=== PATIENT | female | born 1990 | race Caucasian/White ===

== ENCOUNTER → 2019-10-27 | Outpatient (CLI) | payer BC, OTHER | LOC: LAB 10:10 | DX: Z20.828 Contact with and (suspected) exposure to other viral communicable diseases (principal) ==

== ENCOUNTER → 2020-01-04 | Outpatient (CLI) | payer BC, OTHER | LOC: LAB 12:20 | PROVIDERS: ATTEND Nurse Practitioner | DX: U07.1 COVID-19 (principal); R50.9 Fever, unspecified; R05 Cough; R06.02 Shortness of breath ==

== ENCOUNTER → 2020-02-02 | Outpatient (CLI) | payer BC, OTHER | LOC: ULTRA 13:44 | DX: R22.43 Localized swelling, mass and lump, lower limb, bilateral (principal); R06.02 Shortness of breath; Z86.19 Personal history of other infectious and parasitic diseases ==